=== PATIENT | male | born 1940 | race Caucasian/White ===

== ENCOUNTER → 2018-04-21 | Outpatient (CLI) | payer OTHER ==
[~2018-04-21] MED LIST: BENICAR40 MG PO; CHLORTHALIDONE25 MG PO; NORVASC10 MG PO; VALIUM5 MG PO
== END ==
LOC: M.MRI 13:50
DX: M17.11 Unilateral primary osteoarthritis, right knee (principal); M23.91 Unspecified internal derangement of right knee; M71.21 Synovial cyst of popliteal space [Baker], right knee; M25.461 Effusion, right knee; M25.761 Osteophyte, right knee

== ENCOUNTER 2018-05-10 19:19 | Emergency (ER) | payer OTHER ==
[~2018-05-10] VITALS: Ht 175.3 cm; Wt 99.8 kg
[~2018-05-10 19:19] MED LIST changes: +ASPIRIN EC325 M1 PO; +COLACE100 MG PO; +LIPITOR 20 MG T20 M1 PO; +OXYCODONE HCL 55 MG PO; +TOPROL XL25 MG PO; +XARELTO10 MG PO
[2018-05-10 20:01] LABS: URINE BILIRUBIN NEGATIVE (Negative); URINE BLOOD NEGATIVE (Negative); URINE CLARITY CLEAR; URINE COLOR YELLOW; URINE GLUCOSE-RANDOM NEGATIVE (Negative); URINE KETONES NEGATIVE (Negative); URINE LEUKOCYTES-REFLEX NEGATIVE (Negative); URINE NITRITE-REFLEX NEGATIVE (Negative); URINE PROTEIN NEGATIVE (Negative); URINE UROBILINOGEN 0.2 E.U./dl (0.2-1.0)
[2018-05-10 20:38] LABS: ABSOLUTE BASOPHILS 0.2 thou/uL (0.0-0.2); ABSOLUTE EOSINOPHILS 0.1 thou/uL (0.0-0.7); ABSOLUTE LYMPHOCYTES 2.4 thou/uL (0.8-5.3); ABSOLUTE MONOCYTES 0.8 thou/uL (0.0-1.2); ABSOLUTE NEUTROPHILS 4.8 thou/uL (1.6-8.1); BASOPHILS 2.8 %; EOSINOPHILS 1.7 %; HEMATOCRIT 32.5 % (42.0-52.0); HEMOGLOBIN 11.1 gm/dL (14.0-18.0); LYMPHOCYTES 28.6 %; MCHC 34.2 g/dL (28.0-37.0); MCV 90.6 fL (80.0-100.0); MPV 8.5 fl. (7.2-11.1); NUCLEATED RBCS 0 /100WBC; PLATELET COUNT* 273 thou/uL (150-400); POLYS 56.9 %; RBC 3.58 mil/uL (4.50-6.00); RDW-CV 13.4 % (10.5-14.5); WBC 8.4 thou/uL (4.0-11.0)
[2018-05-10 20:48] LABS: ALBUMIN 3.2 g/dL (3.4-5.0); CALCIUM 8.6 mg/dL (8.5-10.1); CREATININE 1.2 mg/dL (0.6-1.3); TOTAL BILIRUBIN 0.9 mg/dL (<0.1-1.0); TOTAL PROTEIN 6.8 g/dL (6.4-8.2)
[2018-05-10] MEDS ORDERED: LEVSIN0.125 MG PO (21:02)
[2018-05-10 21:18] VITALS: BP 140/62
== END 2018-05-10 21:18 | disposition home or self-care (01) ==
LOC: M.ERS 19:19
PROVIDERS: Nurse Practitioner Family
DX: R33.9 Retention of urine, unspecified (principal); I10 Essential (primary) hypertension; K21.9 Gastro-esophageal reflux disease without esophagitis; G47.33 Obstructive sleep apnea (adult) (pediatric); M10.9 Gout, unspecified; Z96.651 Presence of right artificial knee joint; Z90.49 Acquired absence of other specified parts of digestive tract

== ENCOUNTER → 2018-06-25 | Outpatient (CLI) | payer OTHER ==
[~2018-06-25] MED LIST changes: +LEVSIN0.125 MG PO
--- NOTE | 2018-06-25 13:46 | EKG ---
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: [facility] : 1940 Requested By: Mango [place] Order Number: [id number] Reading MD: Andrez Ahuja Measurements Intervals Point Rate: 76 P: 51 NC: 141 QRS: 44 QRSD: 94 T: 54 QT: 381 QTc: 429 Interpretive Statements Sinus rhythm Abnormal R-wave progression, early transition Compared to ECG 05/05/2018 10:52:03 Sinus tachycardia no longer present Early repolarization no longer present Possible ischemia no longer present Electronically Signed On 06-25-2018 13:46:38 CDT by Andrez Ahuja [email or web address] <ELECTRONICALLY SIGNED> By: Andrez Ahuja MD, [facility] 06/25/18 1346 1044 1044 Andrez Ahuja MD, FAC /EPI
--- NOTE | 2018-06-25 15:16 | CARDNUC ---
[place] [address] CARDIAC NUCLEAR IMAGING REPORT Name: MELANIE SPANN Room: [facility]#: [id number] Admission: 06/25/18 Attend Phys: Andrez Ahuja, Discharge: Date of : 40 Date of Service: 06/25/18 1516 Report #: [id number] THIS REPORT FOR: //name// APPROVED REPORT Imaging Protocol: Rest Tc-99m/Stress Tc-99m 1 day Study performed: 06/25/2018 07:45:00 Indication: Abnormal EKG, Pre-Operative CV evaluation Patient Location: Out-Patient Stress Tech: Meagan Garcia Stress Nurse: Vesta Mills RN NM Tech:JOSSIE Packer Ht: 5 ft 9 in Wt: 221 lbs BSA: 2.16 m2 BMI: 32.63 Medical History Medical History: hypertension Medications: asa 81, amlodipine, xarelto, metoprolol Allergies: lipitor, simvastatin, lisinopril niaspan Cardiac Risk Factors: age, hypertension, family hx Previous Cardiac Procedures: none Exercise History: Indeterminate Meds Held (24 hrs): metoprolol Resting Data Rest SPECT myocardial perfusion imaging was performed in supine position 30 minutes following the intravenous injection of 11.2 mCi of Tc-99m Sestamibi. Time of rest injection: 0800 Date: 06/25/2018 Time of rest imagin The images were gated to evaluate regional wall motion and calculate left ventricular ejection fraction. Administration Route: IV Administration Site: Right Hand Pharmacologic Stress Pharmacologic stress test was performed by injecting Regadenoson 0.4 mg IV push over 10-15 seconds immediately followed by the intravenous injection of 34.8 mCi of Tc-99m Sestamibi. Time of stress injection: 0930 Time of stress imagin Administration Route: IV Administration Site: [place] [address] CARDIAC NUCLEAR IMAGING REPORT Name: MARIA INESMELANIE CARLEE Room: [facility]#: [id number] Admission: 06/25/18 Attend Phys: Andrez Ahuja, Discharge: Date of : 40 Date of Service: 06/25/18 1516 Report #: [id number] Gated Stress SPECT was performed 40 minutes after stress injection. The images were gated to evaluate regional wall motion and calculate left ventricular ejection fraction. Prone imaging was performed. Stress Test Details Stress Test: Pharmacologic stress testing performed using 0.4 mg of regadenoson per 5 mL given IV over 10 seconds. Reason for pharmacologic stress test: physical limitation. HR Max Heart Rate (APMHR): 142 bpm Resting HR: 78 bpm Target HR (85% APMHR): 120 bpm Max HR Achieved: 92 bpm % of APMHR: 64 Recovery HR: 88 bpm BP Resting BP: 147/70 mmHg Max BP: 128/60 mmHg Recovery BP: 132/74 mmHg ECG Resting ECG: Sinus Rhythm Stress ECG: Sinus Rhythm ST Change: None Arrhythmia: None Recovery ECG: Sinus Rhythm Recovery ST Change: None Recovery Arrhythmia: None Clinical Reason for Termination: Completed protocol Exercise duration: 0 min sec Exercise capacity: 1 METs The patient tolerated Lexiscan infusion without significant symptoms. Nurse Comments pt had recent knee replacement surgery and cannot walk on treadmill at this time Stress ECG Conclusion The baseline 12-lead EKG shows sinus rhythm without significant ST segment abnormalities. EKGs obtained during and post Lexiscan infusion show sinus rhythm with no significant ST segment changes when compared to baseline. There were [place] [address] CARDIAC NUCLEAR IMAGING REPORT Name: MELANIE SPANN Room: [facility]#: [id number] Admission: 06/25/18 Attend Phys: Andrez Ahuja, Discharge: Date of : 40 Date of Service: 06/25/18 1516 Report #: [id number] arrhythmias. Study Quality Study: Good Artifact: Mild Diaphragmatic artifact Study Data At rest, the left ventricular ejection fraction was 70%.. Post stress, the left ventricular ejection was 68%.. TID = 0.85. Perfusion Perfusion images obtained in the supine position at rest and post Lexiscan stress show mild photopenia of the mid to distal inferior wall that resolves completely with post stress prone imaging consistent with diaphragmatic attenuation artifact. No other significant fixed or reversible defects were identified. Wall Motion Normal left ventricular wall motion. Nuclear Conclusion ECG Findings: negative for ischemia Clinical Findings: negative for ischemia Nuclear Findings: negative for ischemia Exercise Capacity: not assessed Left Ventricular Function: normal Risk Study: low Myocardial perfusion images show no defect to suggest infarct or ischemia. Left ventricular systolic function appears normal on gated studies. This is a low risk study. <Conclusion> The baseline 12-lead EKG shows sinus rhythm without significant ST segment abnormalities. EKGs obtained during and post Lexiscan infusion show sinus rhythm with no significant ST segment changes when compared to baseline. There were no stress-induced arrhythmias. <ELECTRONICALLY SIGNED> By: Andrez Ahuja MD, FACC 06/25/18 1516 1516 1516 Andrez Ahuja MD, FACC /INF
== END ==
LOC: M.NUC 07:30
DX: I10 Essential (primary) hypertension (principal); R94.31 Abnormal electrocardiogram [ECG] [EKG]